=== PATIENT | male | born 1960 | race Caucasian/White ===

== ENCOUNTER 2023-11-02 19:36 | Emergency (ER) | payer OTHER ==
[~2023-11-02] VITALS: Ht 172.7 cm; Wt 72.9 kg
[2023-11-02] MEDS ORDERED: ACULAR5 ML OS (20:28)
[2023-11-02 20:45] VITALS: BP 152/90
== END 2023-11-02 20:40 | disposition home or self-care (01) ==
LOC: ED 19:36
DX: S05.02XA Injury of conjunctiva and corneal abrasion without foreign body, left eye, initial encounter (principal); X58.XXXA Exposure to other specified factors, initial encounter
CPT/HCPCS: 99283